=== PATIENT | female | born 1955 | race Caucasian/White ===

== ENCOUNTER 2025-03-03 02:15 | Inpatient (IN) | payer MEDICARE, OTHER ==
[~2025-03-03] VITALS: Ht 162.6 cm; Wt 85.7 kg
[~2025-03-03 02:15] MED LIST: ACET325T53 PO; ASPI81TA31 PO; ATOR10TA PO; CYAN-28 PO; ERGO400C PO; FERR325T24 PO; MULT-1045 PO; PANT40TA49 PO
[2025-03-03] MEDS ORDERED: MAGNESIUM HYDROXIDE 30 ML LIQUID UDC PO PRN (02:45)
[2025-03-03] MEDS ORDERED: REMEDY ESSENTIAL ZINC PASTE 113 GM TP PRN (02:45)
[2025-03-03 03:12] VITALS: BP 98/61; TEMP 97.8
[2025-03-03] MEDS: IV NS 1000 ML 1,000 ML IV SCH (03:27)
[2025-03-03] MEDS ORDERED: PIPERACILLIN/TAZO 4.5 GM VIAL IV ONE (04:30)
[2025-03-03] MEDS ORDERED: VANCOMYCIN IV 200 ML ONE (04:41)
[2025-03-03] MEDS: VANCOMYCIN IV 1,000 MG in IV DEXTROSE 5% 250 ML IV ONE (04:48)
[2025-03-03 06:41] LABS: PLATELET COUNT (AUTO) 319 K/uL (179-408); RED BLOOD CELL COUNT(AUTO) 3.38 MIL/uL (3.63-4.92); RED CELL DISTRIBUTION WIDTH 17.2 % (12.3-17.7); WHITE BLOOD COUNT (AUTO) 10.0 K/uL (3.8-11.8)
[2025-03-03] MEDS: PIPERACILLIN SODIUM/TAZOBACTAM 4.5 G in IV DEXTROSE 5% 50 ML IV ONE (06:58)
[2025-03-03 07:02] LABS: IRON, SERUM 22.0 ug/dL (50-175)
[2025-03-03 07:17] LABS: ASPARTATE AMINOTRANSFERASE 21.0 U/L (15-37); CREATININE 0.8 mg/dL (0.6-1.3); SODIUM SERUM 140.0 mmol/L (136-145); TOTAL PROTEIN, SERUM 6.9 g/dL (6.4-8.2); UREA NITROGEN, BLOOD 12.0 mg/dL (7-18)
[2025-03-03] MEDS ORDERED: CHOLECALCIFEROL U PO SCH (09:00)
[2025-03-03] MEDS: QUETIAPINE FUMARATE 25 MG TABLET PO SCH (09:14)
[2025-03-03] MEDS: ASPIRIN 81 MG TAB.CHEW PO SCH (09:14)
[2025-03-03] MEDS: MULTIVITAMINS,THERAPEUTIC TABLET PO SCH (09:14)
[2025-03-03] MEDS: CYANOCOBALAMIN 1,000 MCG TABLET PO SCH (09:14)
[2025-03-03] MEDS: OLANZAPINE 10 MG VIAL IM PRN (09:15)
[2025-03-03] MEDS: PANTOPRAZOLE SODIUM 40 MG TABLET.DR PO SCH (09:18)
[2025-03-03] MEDS ORDERED: ALBUTEROL SULFATE 8 GM HFA.AER.AD IH PRN (09:30)
[2025-03-03] MEDS ORDERED: ALBUTEROL SULFATE 2.5 MG/3 ML NEBU NEB PRN (10:15)
[2025-03-03] MEDS: HEPARIN SODIUM,PORCINE 5,000 UNITS/ML VIAL SQ SCH (10:17)
[2025-03-03 11:03] VITALS: BP 126/55; TEMP 98; O2SAT 98
[2025-03-03] MEDS ORDERED: DOCU100C36 PO (12:51)
[2025-03-03] MEDS ORDERED: BISA10SU61 RC (12:51)
[2025-03-03] MEDS ORDERED: MAGN400O6 PO (12:53)
[2025-03-03] MEDS ORDERED: NA P133E RC (12:53)
[2025-03-03] MEDS ORDERED: POLY17PO4 PO (12:54)
[2025-03-03] MEDS ORDERED: MUPI22OI2 TP (12:55)
[2025-03-03] MEDS ORDERED: SENN8.6T19 PO (12:55)
[2025-03-03] MEDS ORDERED: SIME80TA15 PO (12:56)
[2025-03-03] MEDS ORDERED: SIME120L PO (12:57)
[2025-03-03] MEDS ORDERED: OLAN10TA3 PO (12:58)
[2025-03-03] MEDS ORDERED: TRAM50TA2 PO (12:58)
[2025-03-03] MEDS ORDERED: LITH300T3 PO (12:58)
[2025-03-03] MEDS ORDERED: LITH150C PO (12:59)
[2025-03-03] MEDS ORDERED: CLON0.5T4 PO ×2 (13:00→13:01)
[2025-03-03] MEDS ORDERED: TEMA15CA PO (13:01)
[2025-03-03] MEDS: DIVALPROEX 125 MG TABLET.DR PO SCH (13:15)
[2025-03-03] MEDS: PIPERACILLIN SODIUM/TAZOBACTAM 3.375 G in IV DEXTROSE 5% 100 ML IV SCH (13:37)
[2025-03-03] MEDS: LORAZEPAM 0.5 MG TABLET PO PRN (14:04)
[2025-03-03 14:57] VITALS: BP 157/120; TEMP 98; O2SAT 94
[2025-03-03] MEDS: SOD FERRIC GLUC COMPLX/SUCROSE 125 MG in IV NORMAL SALINE 100 ML IV ONE (15:39)
[2025-03-03 16:20] VITALS: O2SAT 96
[2025-03-03] MEDS: VANCOMYCIN IV 1,000 MG in IV DEXTROSE 5% 250 ML IV SCH (17:02)
[2025-03-03] MEDS ORDERED: BACI3.5O23 TOP (17:56)
[2025-03-03] MEDS ORDERED: IBUP-2314 PO (18:01)
[2025-03-03] MEDS ORDERED: DICLOFENAC GEL 1% TOP (18:01)
[2025-03-03] MEDS ORDERED: LITH300T2 PO (18:02)
[2025-03-03] MEDS ORDERED: LITH450T2 PO (18:03)
[2025-03-03 19:00] VITALS: BP 127/70; TEMP 98.2; O2SAT 99
[2025-03-03] MEDS: ZOLPIDEM 5 MG TABLET PO PRN (19:18)
[2025-03-03] MEDS: ATORVASTATIN 40 MG TABLET PO SCH (20:50)
[2025-03-03] MEDS ORDERED: PIPERACILLIN SODIUM/TAZOBACTAM 3.375 G in IV DEXTROSE 5% 50 ML IV SCH (23:00)
[2025-03-04] VITALS (7 sets, daily range): BP systolic 102–142; BP diastolic 60–79; TEMP 97.4–98; O2SAT 93–98
[2025-03-04] MEDS ORDERED: LORAZEPAM 0.5 MG TABLET PO PRN (01:30)
[2025-03-04] MEDS: IV NS 1000 ML 1,000 ML IV PRN (04:14)
[2025-03-04 06:52] LABS: PLATELET COUNT (AUTO) 306 K/uL (179-408); RED BLOOD CELL COUNT(AUTO) 3.30 MIL/uL (3.63-4.92); RED CELL DISTRIBUTION WIDTH 17.0 % (12.3-17.7); WHITE BLOOD COUNT (AUTO) 9.3 K/uL (3.8-11.8)
[2025-03-04 06:59] LABS: CREATININE 0.8 mg/dL (0.6-1.3); SODIUM SERUM 145.0 mmol/L (136-145); UREA NITROGEN, BLOOD 7.0 mg/dL (7-18)
[2025-03-04] MEDS: FERROUS SULFATE 325 MG TABEC PO SCH (08:16)
[2025-03-04] MEDS ORDERED: CHOLECALCIFEROL U PO SCH (09:00)
[2025-03-04] MEDS: MAG HYDROX/AL HYDROX/SIMETH 30 ML LIQUID UDC PO PRN (12:26)
[2025-03-04] MEDS: ACETAMINOPHEN 325 MG TABLET PO PRN (16:24)
[2025-03-05 05:41] VITALS: BP 156/66; TEMP 99.1; O2SAT 95
[2025-03-05 06:46] LABS: PLATELET COUNT (AUTO) 332 K/uL (179-408); RED BLOOD CELL COUNT(AUTO) 3.43 MIL/uL (3.63-4.92); RED CELL DISTRIBUTION WIDTH 17.1 % (12.3-17.7); WHITE BLOOD COUNT (AUTO) 6.3 K/uL (3.8-11.8)
[2025-03-05 07:06] LABS: CREATININE 0.6 mg/dL (0.6-1.3); SODIUM SERUM 146.0 mmol/L (136-145); UREA NITROGEN, BLOOD 4.0 mg/dL (7-18)
[2025-03-05 08:00] VITALS: BP 149/78; TEMP 98.9; O2SAT 96
[2025-03-05] MEDS ORDERED: LEVO750T46 PO (09:26)
[2025-03-05] MEDS ORDERED: LORAZEPAM 2 MG/1 ML VIAL IV ONE (10:45)
[2025-03-05] MEDS: LORAZEPAM 2 MG/1 ML VIAL IM ONE (10:56)
[2025-03-05 11:33] VITALS: BP 112/67; TEMP 98.4; O2SAT 95
[2025-03-05] MEDS: QUETIAPINE FUMARATE 25 MG TABLET PO SCH (13:23)
[2025-03-05] MEDS: DIVALPROEX 250 MG TABLET.DR PO SCH (13:23)
[2025-03-05 16:00] VITALS: BP 101/59; TEMP 98.4; O2SAT 97
[2025-03-05] MEDS: OLANZAPINE 10 MG VIAL IM PRN (16:27)
[2025-03-05 19:40] VITALS: BP 131/62; TEMP 97; O2SAT 97
[2025-03-06] VITALS (8 sets, daily range): BP systolic 108–144; BP diastolic 57–85; TEMP 98.1–99.1; O2SAT 93–99
[2025-03-06] MEDS: ONDANSETRON 4 MG/2 ML VIAL IV PRN (05:01)
[2025-03-06] MEDS ORDERED: IV D5W-0.45% NS 1000 ML BAG IV PRN (05:15)
[2025-03-06] MEDS: IV D5 1/2 NS 1000 ML 1,000 ML IV PRN (05:26)
[2025-03-06 07:08] LABS: PLATELET COUNT (AUTO) 341 K/uL (179-408); RED BLOOD CELL COUNT(AUTO) 3.51 MIL/uL (3.63-4.92); RED CELL DISTRIBUTION WIDTH 17.8 % (12.3-17.7); WHITE BLOOD COUNT (AUTO) 6.5 K/uL (3.8-11.8)
[2025-03-06 07:33] LABS: CREATININE 0.8 mg/dL (0.6-1.3); SODIUM SERUM 146.0 mmol/L (136-145); UREA NITROGEN, BLOOD 5.0 mg/dL (7-18)
[2025-03-06] MEDS: PANTOPRAZOLE SODIUM 40 MG VIAL IV SCH (09:46)
[2025-03-06] MEDS: OLANZAPINE 10 MG VIAL IM ONE (12:32)
[2025-03-06] MEDS: diphenhydrAMINE 50 MG/1 ML VIAL IV ONE (12:32)
[2025-03-06] MEDS: ACETAMINOPHEN 650 MG SUPP.RECT RC PRN (16:08)
[2025-03-06] MEDS ORDERED: LIDOCAINE-MPF 2% 5 ML VIAL ONE (20:00)
[2025-03-06] MEDS ORDERED: METOCLOPRAMIDE HCL 10 MG/2 ML VIAL ONE ×2 (20:00)
[2025-03-06] MEDS ORDERED: PROPOFOL 200 MG/20 ML BOTTLE ONE (20:00)
[2025-03-07 00:16] VITALS: O2SAT 97
[2025-03-07 04:13] VITALS: BP 104/58; TEMP 97.6; O2SAT 96
[2025-03-07 07:24] LABS: PLATELET COUNT (AUTO) 299 K/uL (179-408); RED BLOOD CELL COUNT(AUTO) 3.69 MIL/uL (3.63-4.92); RED CELL DISTRIBUTION WIDTH 18.0 % (12.3-17.7); WHITE BLOOD COUNT (AUTO) 5.5 K/uL (3.8-11.8)
[2025-03-07 07:39] LABS: CREATININE 0.6 mg/dL (0.6-1.3); SODIUM SERUM 145.0 mmol/L (136-145); UREA NITROGEN, BLOOD 8.0 mg/dL (7-18); VALPROIC ACID 17.0 ug/mL (50-100)
[2025-03-07 11:41] VITALS: BP 117/61; TEMP 97.9; O2SAT 97
[2025-03-07] MEDS: DIVALPROEX 500 MG TABLET.DR PO SCH (13:06)
[2025-03-07] MEDS ORDERED: DIVALPROEX 250 MG TABLET.DR PO SCH (14:00)
[2025-03-07] MEDS ORDERED: PANTOPRAZOLE SODIUM 40 MG TABLET.DR PO SCH (17:00)
== END 2025-03-07 13:45 | DRG 177 ==
LOC: MEDSURG3 02:15
PROVIDERS: ATTEND Internal Medicine
PROC: 30233N1 Transfusion of Nonautologous Red Blood Cells into Peripheral Vein, Percutaneous Approach (ICD-10-PCS; 2025-03-06)
PROC: 0DB68ZX Excision of Stomach, Via Natural or Artificial Opening Endoscopic, Diagnostic (ICD-10-PCS; principal; 2025-03-06 20:00)
DX: J15.69 Pneumonia due to other Gram-negative bacteria (principal); G92.8 Other toxic encephalopathy; K29.71 Gastritis, unspecified, with bleeding; F03.94 Unspecified dementia, unspecified severity, with anxiety; F03.92 Unspecified dementia, unspecified severity, with psychotic disturbance; F03.93 Unspecified dementia, unspecified severity, with mood disturbance; D50.9 Iron deficiency anemia, unspecified; K20.90 Esophagitis, unspecified without bleeding; K44.9 Diaphragmatic hernia without obstruction or gangrene; Z78.1 Physical restraint status; R29.6 Repeated falls; Z91.81 History of falling; E78.5 Hyperlipidemia, unspecified; E66.9 Obesity, unspecified; Z68.32 Body mass index [BMI] 32.0-32.9, adult; F10.21 Alcohol dependence, in remission; Z79.82 Long term (current) use of aspirin; Z79.899 Other long term (current) drug therapy
CPT/HCPCS: 36415; 70450; 71045; 71250; 80164; 83550; 83735; 84100; 85018; 85025; 85610; 86850; 86900; 86901; 86920; 93005; A4663; G0378; J1200; J1644; J2060; J2358; J2405; J2470; J2543; J2765; J2916; J3373; J3490; J7040; J7050; P9016